=== PATIENT | female | born 1965 | race Caucasian/White ===

== ENCOUNTER 2020-09-28 02:44 | Emergency (ER) | payer OTHER ==
[2020-09-28 02:57] VITALS: TEMP 98.4; BMI 30.2
[2020-09-28] MEDS ORDERED: IBUPROFEN 600 MG TABLET (FP) PO ONE (02:57)
[2020-09-28] MEDS ORDERED: IBUPROFEN 400 MG TABLET (FP) PO ONE ×2 (02:57→02:58)
[2020-09-28] MEDS ORDERED: MAG HYDROX/AL HYDROX/SIMETH 30 ML UNIT-DOSE CUP ONE (03:42)
[2020-09-28 03:52] LABS: PH,URINE 8.5 (5.0-8.0); URINE APPEARANCE CLEAR; URINE BILIRUBIN NEGATIVE (NEGATIVE); URINE COLOR YELLOW; URINE GLUCOSE (UA) NEGATIVE (NEGATIVE); URINE KETONE NEGATIVE (NEGATIVE); URINE LEUK ESTERASE NEGATIVE (NEGATIVE); URINE NITRITE NEGATIVE (NEGATIVE); URINE PROTEIN NEGATIVE (NEGATIVE); URINE UROBILINOGEN 0.2 mg/dL (0.2-1.0)
[2020-09-28] MEDS ORDERED: LIDOCAINE 5% TOPICAL PATCH TP ONE (04:29)
[2020-09-28] MEDS ORDERED: LIDOCAINE 5% TOPICAL PATCH ONE (04:42)
[2020-09-28] MEDS ORDERED: ACETAMINOPHEN 500 MG TABLET (FP) PO ONE ×2 (05:10→06:59)
[2020-09-28 05:24] LABS: BASO % 0.5 % (0-2.0); EOS % 1.7 % (0-4.5); HEMATOCRIT 34.5 % (32.4-45.2); HEMOGLOBIN 12.2 GM/dL (10.7-15.3); LYMPH % 18.6 % (8-40); MCHC 35.3 g/dl (32.0-36.0); MEAN CELL VOLUME 90.6 fl (80-96); MEAN PLT VOLUME 7.4 fl (7.5-11.1); MONO % 8.3 % (3.8-10.2); NEUT % 70.9 % (42.8-82.8); PLATELET COUNT 254 K/MM3 (134-434); RBC 3.81 M/mm3 (3.60-5.2); RDW 13.1 % (11.6-15.6); WHITE BLOOD COUNT 7.6 K/mm3 (4.0-10.0)
[2020-09-28 05:44] LABS: CALCIUM 8.8 mg/dL (8.5-10.1)
[2020-09-28 05:46] LABS: ALBUMIN 3.9 g/dl (3.4-5.0); BLOOD UREA NITROGEN 12.1 mg/dL (7-18)
[2020-09-28 05:49] LABS: CREATININE 0.6 mg/dL (0.55-1.3)
[2020-09-28 05:50] LABS: BILIRUBIN,TOTAL 0.5 mg/dL (0.2-1)
[2020-09-28 05:51] LABS: TOT PROT 7.3 g/dl (6.4-8.2)
[2020-09-28] MEDS ORDERED: ACETAMINOPHEN 325 MG TABLET (FP) ONE (07:10)
[2020-09-28 07:31] VITALS: BP 114/69; PULSE 74
[2020-09-28] MEDS ORDERED: LIDOCAINE PATCH REMOVAL MC SCH (22:00)
== END 2020-09-28 07:31 | disposition home or self-care (01) ==
LOC: JER 02:44
DX: N20.0 Calculus of kidney (principal)
CPT/HCPCS: 36415; 74176-TC; 80053; 81003; 85025; 87077; 87086; 99284-25

== ENCOUNTER 2022-10-20 04:22 | Day surgery (SDC) | payer OTHER ==
[2022-10-19 11:20] VITALS: BMI 30.8
[2022-10-20] MEDS ORDERED: LIDOCAINE HCL 1% PRESERVATIVE FREE - 30ML VIAL IJ ONE (10:17)
[2022-10-20] MEDS ORDERED: BUPIVACAINE HCL/PF 0.75% 10 ML VIAL PNB ONE (10:17)
[2022-10-20 13:56] VITALS: BP 115/65; PULSE 72; RESP 18; TEMP 97.2
[2022-10-20] MEDS ORDERED: ACETAMINOPHEN 500 MG TABLET (FP) PO PRN (19:36)
== END 2022-10-20 10:56 | disposition home or self-care (01) ==
LOC: JASU-SURG 04:22
PROVIDERS: ATTEND Pain Medicine Pain Medicine
PROC: 3E0T33Z Introduction of Anti-inflammatory into Peripheral Nerves and Plexi, Percutaneous Approach (ICD-10-PCS; 2022-10-20)
PROC: 3E0T3BZ Introduction of Anesthetic Agent into Peripheral Nerves and Plexi, Percutaneous Approach (ICD-10-PCS; principal; 2022-10-20 11:15)
DX: M47.816 Spondylosis without myelopathy or radiculopathy, lumbar region (principal)
CPT/HCPCS: 76000-TC-FY